=== PATIENT | female | born 1970 | race Two or more races ===

== ENCOUNTER 2019-01-13 15:16 | Emergency (ER) | payer OTHER ==
[~2019-01-13] VITALS: Ht 162.6 cm; Wt 86.2 kg
== END 2019-01-13 20:55 | disposition home or self-care (01) ==
LOC: ER 15:16
DX: K80.80 Other cholelithiasis without obstruction (principal); I10 Essential (primary) hypertension; K76.0 Fatty (change of) liver, not elsewhere classified

== ENCOUNTER 2019-01-15 09:00 | Outpatient (CLI) | payer OTHER ==
[2019-01-20] MEDS ORDERED: NORVASC5 MG PO (08:09)
== END 2019-01-15 17:00 | disposition home or self-care (01) ==
LOC: MRI 09:00
DX: K80.10 Calculus of gallbladder with chronic cholecystitis without obstruction (principal)
CPT/HCPCS: 74181

== ENCOUNTER 2019-01-26 04:45 | Day surgery (SDC) | payer OTHER ==
[~2019-01-26 04:45] MED LIST: NORVASC5 MG PO
== END 2019-01-26 12:15 | disposition home or self-care (01) ==
LOC: CIR.AMB 04:45
DX: K80.10 Calculus of gallbladder with chronic cholecystitis without obstruction (principal)

== ENCOUNTER 2023-05-12 13:43 | Emergency (ER) | payer OTHER ==
[~2023-05-12] VITALS: Ht 162.6 cm; Wt 90.7 kg
[2023-05-12] MEDS ORDERED: COZAAR50 MG PO (15:05)
[2023-05-12] MEDS ORDERED: MELOXICAM15 MG PO (15:06)
[2023-05-12] MEDS ORDERED: ALENDRONATE SOD70 MG PO (15:06)
[2023-05-12] MEDS ORDERED: NORFLEX100MG PO (22:12)
[2023-05-12] MEDS ORDERED: MOBIC7.5 MG PO (22:12)
== END 2023-05-12 22:35 | disposition home or self-care (01) ==
LOC: ER 13:44
DX: M54.2 Cervicalgia (principal); M54.50 Low back pain, unspecified; I10 Essential (primary) hypertension